=== PATIENT | female | born 2000 | race Caucasian/White ===

== ENCOUNTER 2025-07-04 07:20 | Day surgery (SDC) | payer OTHER ==
[2025-07-03 11:32] VITALS: BMI 33.8
[2025-07-04] MEDS ORDERED: PROPOFOL 20 ML ONE (08:14)
[2025-07-04] MEDS ORDERED: Lidocaine 1% PF 5 ML VIAL ONE (08:14)
[2025-07-04] MEDS ORDERED: Ondansetron PF 4 MG/2 ML Vial ONE ×2 (08:37→09:57)
[2025-07-04] MEDS ORDERED: SUCCINYLCHOLINE/SOD CL,ISO/PF 200 MG/10 ML SYRINGE FS ONE (09:28)
[2025-07-04] MEDS ORDERED: CEFAZOLIN 2 GM VIAL ONE (09:30)
[2025-07-04] MEDS ORDERED: Rocuronium Bromide 10 MG/ML (10ML VIAL) ONE (09:45)
[2025-07-04] MEDS ORDERED: Ropivacaine 0.5% HCl/PF (150 MG/30 ML VIAL) ONE (09:45)
[2025-07-04] MEDS ORDERED: HYDROcodone/Acetaminophen 10/325 mg Tablet PO PRN ×2 (10:15)
[2025-07-04] MEDS ORDERED: Ropivacaine 0.2% 550 ML 550 ML NERVE BLCK SCH (10:15)
[2025-07-04] MEDS ORDERED: Ondansetron PF 4 MG/2 ML Vial IVP PRN (10:15)
[2025-07-04] MEDS ORDERED: PHENYLEPHRINE-NS 100 MCG/ML 10 ML SYRINGE ONE (10:46)
[2025-07-04] MEDS ORDERED: SUGAMMADEX SODIUM 200 MG/2 ML VIAL ONE (10:48)
[2025-07-04] MEDS ORDERED: fentaNYL PF 100 MCG/2 ML SYRINGE ONE (11:17)
[2025-07-04] MEDS ORDERED: Ketorolac Tromethamine 30 MG (1 mL) VIAL IVP SCH (12:00)
[2025-07-04] MEDS ORDERED: Ketorolac Tromethamine 30 MG (1 mL) VIAL ONE (14:12)
[2025-07-04] MEDS ORDERED: HYDROcodone/Acetaminophen 5/325 mg Tablet ONE (14:12)
== END 2025-07-04 15:20 | disposition home or self-care (01) ==
LOC: SDC 07:20
PROVIDERS: ATTEND Orthopaedic Surgery
PROC: 3E0T3BZ Introduction of Anesthetic Agent into Peripheral Nerves and Plexi, Percutaneous Approach (ICD-10-PCS; principal; 2025-07-04)
PROC: 0PSD04Z Reposition Left Humeral Head with Internal Fixation Device, Open Approach (ICD-10-PCS; principal; 2025-07-04)
DX: O9A.23 Injury, poisoning and certain other consequences of external causes complicating the puerperium (principal); S42.252A Displaced fracture of greater tuberosity of left humerus, initial encounter for closed fracture; Z86.16 Personal history of COVID-19; Z87.59 Personal history of other complications of pregnancy, childbirth and the puerperium; V89.2XXA Person injured in unspecified motor-vehicle accident, traffic, initial encounter
CPT/HCPCS: A4306; C1713; J1100; J1885; J2250; J2405; J2704; J2795; J3010